=== PATIENT | female | born 1995 | race Caucasian/White ===

== ENCOUNTER 2017-03-05 08:00 | Outpatient (CLI) | payer OTHER ==
[2017-03-05 13:40] LABS: BASOPHILS % (AUTO) 0.6 %; EOSINOPHILS # (AUTO) 0.2 10^3/uL (0.0-0.7); HCT - HEMATOCRIT 41.1 % (37.0-47.0); HGB - HEMOGLOBIN 13.2 g/dL (12.0-16.0); LYMPHOCYTES # (AUTO) 2.2 10^3/uL (1.5-3.5); LYMPHOCYTES % (AUTO) 29.7 %; MEAN CORPUSCULAR HEMOGLOBIN 27.4 pg (27.0-31.0); MEAN CORPUSCULAR HGB CONC 32.1 g/dL (32.0-36.0); MEAN CORPUSCULAR VOLUME 85.5 fL (81.0-99.0); MEAN PLATELET VOLUME 8.6 fL (7.9-10.8); MONOCYTES # (AUTO) 0.7 10^3/uL (0.0-1.0); MONOCYTES % (AUTO) 8.7 %; NEUTROPHILS # (AUTO) 4.4 10^3/uL (1.5-6.6); NUCLEATED RED BLOOD CELLS AUTO 0.1 /100WBC; UNCORRECTED WHITE BLOOD COUNT 7.6 x10^3/uL; WHITE BLOOD COUNT 7.6 x10^3/uL (4.8-10.8)
[2017-03-05 13:43] LABS: ALBUMIN/GLOBULIN RATIO 1.1 (1.0-2.2); BILIRUBIN,TOTAL 0.3 mg/dL (0.2-1.0); CALCIUM 9.1 mg/dL (8.5-10.3); CREATININE 0.9 mg/dL (0.4-1.0); POTASSIUM 3.8 mmol/L (3.5-5.0); TOTAL PROTEIN 8.4 g/dL (6.7-8.2)
== END 2017-03-05 08:01 | disposition home or self-care (01) ==
LOC: LAB.WCP 08:00
PROVIDERS: ATTEND Physician Assistant Medical
DX: B97.89 Other viral agents as the cause of diseases classified elsewhere (principal); D50.9 Iron deficiency anemia, unspecified
CPT/HCPCS: 36415; 80053; 82728; 85025

== ENCOUNTER 2018-11-28 19:45 | Emergency (ER) | payer OTHER ==
--- NOTE | 2018-11-28 20:06 | ED Physician Documentation ---
History of Present Illness - Stated complaint Stated Complaint: R HAND/L ANKLE PX - Chief complaint Chief Complaint: Trauma Ext - History obtained from History obtained from: Patient - History of Present Illness Timing: Last night (Last night at 2 AM she tripped and fell off the curb and injured her right foot and right hand. She remembers smacking the back of her hand on the ground and has pain over the fifth metacarpal. Pain over both sides of the malleoli of the right ankle but is able to walk and bear weight. No other injuries. 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 : None HEENT: None Psych: Anxiety Musculoskeletal: None Derm: None - Past Surgical History Past Surgical History: Yes - Present Medications Home Medications: Ambulatory Orders Medication Instructions Recorded Confirmed Omeprazole 1 tab ORAL DAILY 11/28/18 11/28/18 Sertraline HCl 1 tab ORAL DAILY 11/28/18 11/28/18 - Allergies Allergies/Adverse Reactions: Allergies Allergy/AdvReac Type Severity Reaction Status Date / Time No Known Drug Allergies Allergy Verified 11/28/18 19:51 - Social History Does the pt smoke?: No Smoking Status: Never smoker Does the pt drink ETOH?: Yes ETOH Use: Beer, Liquor Does the pt have substance abuse?: No - Immunizations Immunizations are current?: Yes - POLST Patient has POLST: No PD ED PE NORMAL - Vitals Vital signs reviewed: Yes - General General: Alert and oriented X 3 - HEENT HEENT: Atraumatic, PERRL - Neck Neck: Supple, no meningeal sign, No bony TTP - Extremities Extremities: Other (Tender over the medial malleolus of the right ankle, but swollen over the lateral malleolus. Noted to remedy. No foot tenderness, no proximal fibular tenderness. She is also tender over the right fifth metacarpal but no deformity and good range of motion.) - Neuro Neuro: Alert and oriented X 3, Normal speech Results - Vitals Vitals: Vital Signs - 24 hr 11/28/18 19:49 Temperature 36.4 C L Heart Rate 99 Respiratory 15 Rate Blood Pressure 108/91 H O2 Saturation 99 Oxygen O2 Source Room air - Rads (name of study) R hand and ankle XRs Radiology: EMP read contemporaneously (NAD) Procedures - Splint (location) R hand Splint applied by: Physician Type of splint: Fiberglass, Short arm, Ulnar gutter Other: Patient tolerated well, Neurovascular intact Departure - Departure Disposition: 01 Home, Self Care Clinical Impression: Contusion of right hand Qualifiers: Encounter type: initial encounter Qualified Code(s): S60.221A - Contusion of r ight hand, initial encounter Right ankle sprain Qualifiers: Encounter type: initial encounter Involved ligament of ankle: anterior talofibular ligament Qualified Code(s): S93.491A - Sprain of other ligament of right ankle, initial encounter Condition: Good Record reviewed to determine appropriate education?: Yes Instructions: ED Sprain Ankle W X Ray Comments: Recheck with your doctor in 1 week if not better. Return for new or worsening symptoms. You may walk and bear weight as tolerated. Forms: Activity restrictions
--- NOTE | 2018-11-28 20:52 | XRAY Report ---
Reason: hand/ankle inj Procedure Date: 11/28/2018 Accession Number: [id number] / [id number] Procedure: XR - Hand 3 View RT CPT Code: FULL RESULT: EXAM: RIGHT HAND RADIOGRAPHY. EXAM DATE: 11/28/2018 08:21 PM. CLINICAL HISTORY: Hand/ankle injury. COMPARISON: None. TECHNIQUE: 3 views. FINDINGS: Bones: Normal. No fractures or bone lesions. Joints: Normal. No subluxations. Soft Tissues: Normal. No soft tissue swelling. IMPRESSION: Normal hand radiography. RADIA
--- NOTE | 2018-11-28 20:53 | XRAY Report ---
Reason: hand/ankle inj Procedure Date: 11/28/2018 Accession Number: [id number] / [id number] Procedure: XR - Ankle 3 View RT CPT Code: FULL RESULT: EXAM: RIGHT ANKLE RADIOGRAPHY EXAM DATE: 11/28/2018 08:21 PM. CLINICAL HISTORY: Fall with right ankle injury. COMPARISON: ANKLE 3 VIEW RT 03/25/2015 11:13 PM. TECHNIQUE: 3 views. FINDINGS: Bones: Normal. No fractures or bone lesions. Joints: Normal. No effusion. No subluxations. The ankle mortise is normally aligned. Soft Tissues: Moderate swelling, greater on the lateral aspect. IMPRESSION: Moderate swelling, but no evidence of fracture. RADIA
[2018-11-28 21:06] VITALS: BP 115/73
== END 2018-11-28 21:12 | disposition home or self-care (01) ==
LOC: ED 19:45
DX: S60.221A Contusion of right hand, initial encounter (principal); S93.499A Sprain of other ligament of unspecified ankle, initial encounter; W01.0XXA Fall on same level from slipping, tripping and stumbling without subsequent striking against object, initial encounter; Y93.01 Activity, walking, marching and hiking
CPT/HCPCS: 29125; 99282; 99283

== ENCOUNTER 2022-08-23 23:26 | Emergency (ER) | payer OTHER ==
[2022-08-24] MEDS ORDERED: DOXYCYCLINE 100 MG TABLET PO ONE (01:53)
[2022-08-24 07:57] VITALS: BP 131/81
--- NOTE | 2022-08-24 09:53 | ED Physician Documentation ---
ED Addendum - Addendum Addendum: 08/24/22 09:52 [facility]. SEE PAPER CHART
== END 2022-08-24 01:53 | disposition home or self-care (01) ==
LOC: ED 23:26
DX: N61.1 Abscess of the breast and nipple (principal)
CPT/HCPCS: 99282; 99283; A9270

== ENCOUNTER 2023-07-22 08:00 | Outpatient (CLI) | payer MEDICAID, OTHER | END 2023-07-22 23:59 | disposition home or self-care (01) | LOC: LAB 08:00 | PROVIDERS: ATTEND Family Medicine | DX: L72.3 Sebaceous cyst (principal) | CPT/HCPCS: 87070; 87077; 87181; 87205 ==

== ENCOUNTER 2023-10-02 12:01 | Emergency (ER) | payer MEDICAID, OTHER ==
[2023-10-02 12:12] VITALS: O2SAT 100
[2023-10-02 12:26] LABS: BASOPHILS % (AUTO) 0.5 %; EOSINOPHILS # (AUTO) 0.1 10^3/uL (0.0-0.7); EOSINOPHILS % (AUTO) 1.7 %; HCT - HEMATOCRIT 36.7 % (37.0-47.0); HGB - HEMOGLOBIN 10.8 g/dL (12.0-16.0); LYMPHOCYTES # (AUTO) 2.4 10^3/uL (1.5-3.5); LYMPHOCYTES % (AUTO) 29.6 %; MEAN CORPUSCULAR HEMOGLOBIN 24.9 pg (27.0-31.0); MEAN CORPUSCULAR HGB CONC 29.4 g/dL (32.0-36.0); MEAN CORPUSCULAR VOLUME 84.8 fL (81.0-99.0); MEAN PLATELET VOLUME 9.5 fL (7.9-10.8); MONOCYTES # (AUTO) 0.6 10^3/uL (0.0-1.0); PLT - PLATELET COUNT 406 10^3/uL (130-450); RED BLOOD COUNT 4.33 10^6/uL (4.20-5.40); RED CELL DISTRIBUTION WIDTH 15.7 % (12.0-15.0); WHITE BLOOD COUNT 8.2 x10^3/uL (4.8-10.8)
[2023-10-02 12:41] LABS: BILIRUBIN,URINE NEGATIVE (NEGATIVE); GLUCOSE, URINE (UA) NEGATIVE (NEGATIVE); KETONES,URINE (UA) NEGATIVE (NEGATIVE); LEUKOCYTE ESTERASE, URINE NEGATIVE (NEGATIVE); NITRITE,URINE NEGATIVE (NEGATIVE); OCCULT BLOOD,URINE SMALL (NEGATIVE); PROTEIN,URINE NEGATIVE (NEGATIVE); UROBILINOGEN,URINE 0.2 (NORMAL) E.U./dL (NORMAL)
[2023-10-02 12:41] LABS: ALBUMIN 4.2 g/dL (3.2-5.5); ALBUMIN/GLOBULIN RATIO 1.3 (1.0-2.2); BILIRUBIN,TOTAL 0.3 mg/dL (0.2-1.0); CALCIUM 9.2 mg/dL (8.5-10.3); POTASSIUM 3.8 mmol/L (3.5-4.5); TOTAL PROTEIN 7.5 g/dL (6.4-8.9)
[2023-10-02 12:42] LABS: CLARITY,URINE CLEAR (CLEAR); HCG UR QUAL NEGATIVE
[2023-10-02 12:52] LABS: BACTERIA,URINE Few /HPF (None Seen); RBC,URINE 0-5 /HPF (0-5); SQUAMOUS EPITHELIAL CELL,UR FEW Squamous (<= Few); WBC,URINE 0-3 /HPF (0-5)
--- NOTE | 2023-10-02 14:58 | ED Physician Documentation ---
PD HPI ABD PAIN - Stated complaint Stated Complaint: LLQ PX - Chief complaint Chief Complaint: Abd Pain - History obtained from History obtained from: Patient - History of Present Illness Timing - onset: How many hours ago (few), Today Timing - duration: Hours Timing - details: Abrupt onset, Still present (has increased since onset.) Quality: Cramping, Aching, Pain Location: LLQ Radiation: Left flank Associated symptoms: Nausea. No: Fever, Vomiting, Diarrhea, Constipation, Dysuria Review of Systems Constitutional: denies: Fever, Chills Nose: denies: Rhinorrhea / runny nose, Congestion Throat: denies: Sore throat Respiratory: denies: Cough GI: reports: Abdominal Pain, Nausea. 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 : None HEENT: None Psych: Anxiety Musculoskeletal: None Derm: None - Past Surgical History Past Surgical History: Yes - Present Medications Home Medications: Ambulatory Orders Medication Instructions Recorded Confirmed Sertraline HCl 1 tab ORAL DAILY 11/28/18 08/23/22 acetaZOLAMIDE ER [Diamox ER] 500 mg PO DAILY 06/18/22 08/23/22 buPROPion [Wellbutrin Xl] 150 mg PO DAILY 06/18/22 08/23/22 Meloxicam [Mobic] 7.5 mg PO BID 10 Days #20 tablet 10/02/23 Ondansetron Odt [Zofran] 4 mg TL Q6H PRN #10 tablet 10/02/23 Oxycodone HCl/Acetaminophen 1 each PO Q4H PRN #25 tablet 10/02/23 [Percocet 5-325 mg Tablet] Tamsulosin [Flomax] 0.4 mg PO DAILY #5 cap 10/02/23 - Allergies Allergies/Adverse Reactions: Allergies Allergy/AdvReac Type Severity Reaction Status Date / Time No Known Drug Allergies Allergy Verified 10/02/23 12:06 - Social History Does the pt smoke?: No Smoking Status: Never smoker Does the pt drink ETOH?: Yes Does the pt have substance abuse?: No - Immunizations Immunizations are current?: Yes - POLST Patient has POLST: No PD ED PE NORMAL - Vitals Vital signs reviewed: Yes - General General: Alert and oriented X 3, Well developed/nourished, Other (appears in considerable pain left abd to back. ) - Cardiac Cardiac: RRR, No murmur - Respiratory Respiratory: Clear bilaterally - Abdomen Abdomen: Normal bowel sounds, Soft, Non distended, No organomegaly, Other (tender LLQ but not nearly as much as just pain itself. Some left CVA tenderness. ) - Back Back: No spinal TTP - Derm Derm: Normal color, Warm and dry, No rash Results - Vitals Vitals: Vital Signs - 24 hr 10/02/23 10/02/23 10/02/23 12:06 15:08 17:35 Temperature 36.8 C Heart Rate 84 86 93 Respiratory 16 16 16 Rate Blood Pressure 140/90 H 116/82 H 114/73 O2 Saturation 100 100 100 10/02/23 17:45 Temperature 36.8 C Heart Rate 93 Respiratory 16 Rate Blood Pressure 114/73 O2 Saturation 100 Oxygen O2 Source Room air - Labs Labs: Laboratory Tests 10/02/23 10/02/23 10/02/23 12:18 12:22 12:22 WBC 8.2 RBC 4.33 Hgb 10.8 L Hct 36.7 L MCV 84.8 MCH 24.9 L MCHC 29.4 L RDW 15.7 H Plt Count 406 MPV 9.5 Neut # (Auto) 5.0 Lymph # (Auto) 2.4 [place] # (Auto) 0.6 Eos # (Auto) 0.1 Baso # (Auto) 0.0 Absolute Nucleated RBC 0.00 Nucleated RBC % 0.0 Sodium 138 Potassium 3.8 Chloride 108 Carbon Dioxide 25 Anion Gap 5.0 L BUN 17 Creatinine 1.0 Estimated GFR (MDRD) 67 L Glucose 67 L Calcium 9.2 Total Bilirubin 0.3 AST 14 ALT 8 L Alkaline Phosphatase 72 Total Protein 7.5 Albumin 4.2 Globulin 3.3 Albumin/Globulin Ratio 1.3 Lipase 32 Urine Color YELLOW Urine Clarity CLEAR Urine pH 6.0 Ur Specific [place] >=1.030 H Urine Protein NEGATIVE Urine Glucose (UA) NEGATIVE Urine Ketones NEGATIVE Urine Occult Blood SMALL H Urine Nitrite NEGATIVE Urine Bilirubin NEGATIVE Urine Urobilinogen 0.2 (NORMAL) Ur Leukocyte Esterase NEGATIVE Urine RBC 0-5 Urine WBC 0-3 Ur Squamous Epith Cells FEW Squamous Urine Bacteria Few Ur Microscopic Review INDICATED Urine Culture Comments NOT INDICATED Urine HCG, Qual NEGATIVE PD Medical Decision Making - ED course Complexity details: reviewed results (no UTI, renal function and WBC are good. CT showing 8 mm stone proximal third of ureter. [place]. No other acute findings. ), re-evaluated patient (pain much improved with IV meds of toradol, zofran , dilaudid. Was still mild/moderate, so repeat dose dilaudid. She felt comfortable discharging. Referred to Urology. Return if need.), considered differential (left abd pain with some tenderness. Consider UTI, renal stone, diverticulitis, ovarian cyst, other process. ), d/w patient Departure - Departure Disposition: 01 Home, Self Care Clinical Impression: Left sided abdominal pain, Ureterolithiasis Condition: Stable Record reviewed to determine appropriate education?: Yes Instructions: ED Stone Renal W Colic Follow-Up: Chani Carver MD [Primary Care Provider] - [place] Ch MD [Provider Admit Priv/Credential] - Prescriptions: Tamsulosin [Flomax] 0.4 mg PO DAILY #5 cap Meloxicam [Mobic] 7.5 mg PO BID 10 Days #20 tablet Oxycodone HCl/Acetaminophen [Percocet 5-325 mg Tablet] 1 each PO Q4H PRN #25 tablet PRN Reason: pain Ondansetron Odt [Zofran] 4 mg TL Q6H PRN #10 tablet PRN Reason: Nausea / Vomiting Comments: You do have an 8 mm stone in the upper third of the left ureter. It is made its way a small amount. At this point would see if the stone is able to keep passing on its own helped with medication. I prescribed an anti-inflammatory as well as a medication called tamsulosin to help reduce ureteral spasms. Take them as directed. Additionally ondansetron if needed for nausea. To that use regular Tylenol 500 to 650 mg 4 times a day. Add or substitute oxycodone/acetaminophen every 4-6 hours if needed for worse pain. Return if pain is not well-modulated with the medications. If it seems you have not passed the stone (i.e. you are still requiring medications for comfort), after a few days then you could return to the ER or even better would be to call the urology office and tell them the circumstances and they typically would get you in a fairly prompt follow-up visit. If the stone does not pass readily, interventions could be potentially passed placing a stent in the ureter to open the way or try to remove the stone with laser as etc. I sent your prescriptions to the [facility] pharmacy in [place]. I am prescribing a short course of narcotic pain medication for you. These are potentially dangerous and addictive medications that should be used carefully. These medications may constipate you. Take an wnfl-lcb-cwsmrva stool softener such as docusate twice daily with plenty of water while taking these medications. If you go 24 hours without a bowel movement, take [id number]-[id number] MiraLAX, per package instructions. Do not drink or drive while taking these medications. If you received narcotic or sedating medications while in the emergency department do not drive for 24 hours. Store this medication in a safe, secure place and out of reach of children. It is a violation of federal law to give or sell this medication to another person or to use in a manner other than prescribed. The ED will not refill narcotic prescriptions, including prescriptions lost or stolen. You can dispose of unwanted medications at the [facility]'s office or at several pharmacies such as [facility]. Forms: PCP List Discharge Date/Time: 10/02/23 17:55
[2023-10-02] MEDS: SODIUM CHLORIDE 0.9% 1,000 ML IV STA (15:50)
[2023-10-02] MEDS: ONDANSETRON 4 MG/2 ML VIAL IVP STA (15:51)
[2023-10-02] MEDS: HYDROmorphone 1 MG/ML CARPUJECT IVP STA (15:52)
[2023-10-02] MEDS: KETOROLAC 15 MG/ML VIAL IVP STA (15:52)
[2023-10-02] MEDS ORDERED: iohexoL-300 100 ML VIAL ONE (16:15)
--- NOTE | 2023-10-02 17:02 | CT Report ---
PROCEDURE: Abdomen/Pelvis W INDICATIONS: left abd/flank pain onset this morning CONTRAST: 100ml omni 300 TECHNIQUE: After the administration of intravenous contrast, a CT scan of the abdomen and pelvis was performed. Images were recorded and evaluated at appropriate window settings. Reformats: coronal and sagittal. F or radiation dose reduction, the following was used: automated exposure control, adjustment of mA and /or kV according to patient size. COMPARISON: None. FINDINGS: Image quality: Diagnostic. Lower chest: Unremarkable. Liver: No solid mass. Gallbladder and biliary tree: No radiopaque stones or wall thickening. No biliary dilation. Spleen: No splenomegaly. Pancreas: No pancreatic ductal dilation. Adrenals: No adrenal nodule. Kidneys and ureters: There is a 8 mm proximal left ureteral stone at the level of the inferior aspect of L3 which results in a delayed left nephrogram and moderate left hydronephrosis and left kidney ed carmella. The right kidney and ureter are unremarkable. Stomach, bowel and peritoneum: No bowel distension. No pathologic free fluid. Lymph nodes: No central or retroperitoneal adenopathy. Vessels: No infrarenal aortic aneurysm. PELVIS Reproductive organs: Bilateral cystic adnexa. Uterus is normal in size.. Bladder: No abnormal wall thickening, accounting for underdistention. Pelvic lymph nodes: No pelvic adenopathy by size criteria. Bones: No aggressive osseous abnormality. Other: No significant ventral or inguinal hernia. IMPRESSION: 1. 8 mm proximal left ureteral stone obstructs the left ureter, resulting in a delayed left nephrogra m, moderate left hydronephrosis, and an edematous appearance of the left kidney. Reviewed by: Deejay Phelps MD on 10/02/2023 5:01 PM PDT Approved by: Deejay Phelps MD on 10/02/2023 5:01 PM PDT Station ID: [id number]
[2023-10-02] MEDS: HYDROmorphone 0.5 MG/0.5 ML SYRINGE IVP STA (17:31)
[2023-10-02] MEDS: TAMSULOSIN 0.4 MG CAPSULE PO STA (17:31)
[2023-10-02 17:38] VITALS: BP 114/73
[2023-10-02] MEDS: iohexoL-300 100 ML VIAL IVP ONE (17:40)
== END 2023-10-02 17:55 | disposition home or self-care (01) ==
LOC: ED 12:01
DX: N20.1 Calculus of ureter (principal)
CPT/HCPCS: 36415; 74177; 80053; 81001; 81025; 83690; 85025; 96374; 96375; 96376; 99284; A9270; J1170; Q9967; 81003; 87086

== ENCOUNTER 2023-12-17 05:22 | Emergency (ER) | payer MEDICAID ==
[2023-12-17 05:42] LABS: BASOPHILS # (AUTO) 0.1 10^3/uL (0.0-0.1); BASOPHILS % (AUTO) 0.5 %; EOSINOPHILS # (AUTO) 0.1 10^3/uL (0.0-0.7); HCT - HEMATOCRIT 39.5 % (37.0-47.0); HGB - HEMOGLOBIN 11.4 g/dL (12.0-16.0); LYMPHOCYTES # (AUTO) 2.1 10^3/uL (1.5-3.5); LYMPHOCYTES % (AUTO) 17.7 %; MEAN CORPUSCULAR HEMOGLOBIN 24.3 pg (27.0-31.0); MEAN CORPUSCULAR HGB CONC 28.9 g/dL (32.0-36.0); MONOCYTES # (AUTO) 0.8 10^3/uL (0.0-1.0); NEUTROPHILS # (AUTO) 8.8 10^3/uL (1.5-6.6); NEUTROPHILS % (AUTO) 73.4 %; PLT - PLATELET COUNT 345 10^3/uL (130-450); RED CELL DISTRIBUTION WIDTH 15.9 % (12.0-15.0)
[2023-12-17] MEDS: SODIUM CHLORIDE 0.9% 1,000 ML IV STA (05:44)
[2023-12-17] MEDS: ONDANSETRON 4 MG/2 ML VIAL IVP STA (05:44)
--- NOTE | 2023-12-17 05:48 | ED Physician Documentation ---
History of Present Illness - Stated complaint Stated Complaint: VOMITING/ABD PX - Chief complaint Chief Complaint: General - History obtained from History obtained from: Patient - Additonal information Additional information: The patient comes to the emergency department with chief complaint of abdominal pain, nausea, vomiting, and chills. She states the pain started yesterday afternoon and was somewhat generalized across her mid to lower abdomen, but then seem to localize more to the left flank and back. The patient has a history of kidney stones and states this feels similar. She denies any dysuria or hematuria. She states that she became more nauseated as the pain got worse and ended up vomiting this morning. The patient has not urinated since yesterday. She denies any changes in her bowel movements. No vaginal symptoms. No fevers. No other complaints at this time. 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 : None HEENT: None Psych: Anxiety Musculoskeletal: None Derm: None - Past Surgical History Past Surgical History: Yes - Present Medications Home Medications: Ambulatory Orders Medication Instructions Recorded Confirmed Sertraline HCl 1 tab ORAL DAILY 11/28/18 08/23/22 acetaZOLAMIDE ER [Diamox ER] 500 mg PO DAILY 06/18/22 08/23/22 buPROPion [Wellbutrin Xl] 150 mg PO DAILY 06/18/22 08/23/22 Meloxicam [Mobic] 7.5 mg PO BID 10 Days #20 tablet 10/02/23 Ondansetron Odt [Zofran] 4 mg TL Q6H PRN #10 tablet 10/02/23 Oxycodone HCl/Acetaminophen 1 each PO Q4H PRN #25 tablet 10/02/23 [Percocet 5-325 mg Tablet] Tamsulosin [Flomax] 0.4 mg PO DAILY #5 cap 10/02/23 HYDROcod/ACETAM 5/325 [[place] 5/325] 1 - 2 tablet PO Q6H PRN #14 tablet 12/17/23 Ondansetron Odt [Zofran] 4 mg TL Q6H PRN #14 tablet 12/17/23 - Allergies Allergies/Adverse Reactions: Allergies Allergy/AdvReac Type Severity Reaction Status Date / Time No Known Drug Allergies Allergy Verified 12/17/23 05:43 - Social History Does the pt smoke?: No Smoking Status: Never smoker Does the pt drink ETOH?: Yes Does the pt have substance abuse?: No - Immunizations Immunizations are current?: Yes - POLST Patient has POLST: No PD ED PE NORMAL - Vitals Vital signs reviewed: Yes - General General: Alert and oriented X 3, No acute distress, Well developed/nourished - HEENT HEENT: Atraumatic, PERRL, EOMI, Moist mucous membranes - Neck Neck: Supple, no meningeal sign - Cardiac Cardiac: RRR, No murmur - Respiratory Respiratory: No respiratory distress, Clear bilaterally - Abdomen Abdomen: Soft, Non distended, Other (Mild left lower quadrant and flank tenderness, no rebound or guarding.) - Back Back: Other (Mild left CVA tenderness.) - Derm Derm: Normal color, Warm and dry, No rash - Extremities Extremities: No deformity, No edema - Neuro Neuro: Alert and oriented X 3 - Psych Psych: Normal mood, Normal affect Results - Vitals Vitals: Vital Signs - 24 hr 12/17/23 12/17/23 12/17/23 05:29 07:34 08:35 Temperature 36.5 C Heart Rate 107 H 86 84 Respiratory 16 14 16 Rate Blood Pressure 128/92 H 117/80 124/64 O2 Saturation 99 99 97 Oxygen O2 Source Room air - Labs Labs: Laboratory Tests 12/17/23 12/17/23 12/17/23 05:36 05:36 05:36 WBC 12.0 H RBC 4.70 Hgb 11.4 L Hct 39.5 MCV 84.0 MCH 24.3 L MCHC 28.9 L RDW 15.9 H Plt Count 345 MPV 10.0 Neut # (Auto) 8.8 H Lymph # (Auto) 2.1 [place] # (Auto) 0.8 Eos # (Auto) 0.1 Baso # (Auto) 0.1 Absolute Nucleated RBC 0.00 Nucleated RBC % 0.0 Sodium 137 Potassium 3.4 L Chloride 106 Carbon Dioxide 24 Anion Gap 7.0 BUN 17 Creatinine 1.5 H Estimated GFR (MDRD) 42 L Glucose 109 H Calcium 9.1 Total Bilirubin 0.4 AST 13 ALT 8 L Alkaline Phosphatase 75 Total Protein 7.8 Albumin 4.3 Globulin 3.5 Albumin/Globulin Ratio 1.2 Lipase 13 Serum HCG, Qual NEGATIVE Urine Color Urine Clarity Urine pH Ur Specific [place] Urine Protein Urine Glucose (UA) Urine Ketones Urine Occult Blood Urine Nitrite Urine Bilirubin Urine Urobilinogen Ur Leukocyte Esterase Urine RBC Urine WBC Ur Squamous Epith Cells Urine Bacteria Ur Microscopic Review Urine Culture Comments 12/17/23 05:52 WBC RBC Hgb Hct MCV MCH MCHC RDW Plt Count MPV Neut # (Auto) Lymph # (Auto) [place] # (Auto) Eos # (Auto) Baso # (Auto) Absolute Nucleated RBC Nucleated RBC % Sodium Potassium Chloride Carbon Dioxide Anion Gap BUN Creatinine Estimated GFR (MDRD) Glucose Calcium Total Bilirubin AST ALT Alkaline Phosphatase Total Protein Albumin Globulin Albumin/Globulin Ratio Lipase Serum HCG, Qual Urine Color YELLOW Urine Clarity CLEAR Urine pH 6.0 Ur Specific [place] 1.025 Urine Protein NEGATIVE Urine Glucose (UA) NEGATIVE Urine Ketones NEGATIVE Urine Occult Blood SMALL H Urine Nitrite NEGATIVE Urine Bilirubin NEGATIVE Urine Urobilinogen 0.2 (NORMAL) Ur Leukocyte Esterase SMALL H Urine RBC 0-5 Urine WBC 4-5 Ur Squamous Epith Cells FEW Squamous Urine Bacteria Few Ur Microscopic Review INDICATED Urine Culture Comments INDICATED - Rads (name of study) CT abdomen pelvis no contrast Relevant Findings:: Final report received, See rad report (6.5 mm stone in the left mid ureter, some hydronephrosis.) PD Medical Decision Making - ED course Complexity details: reviewed results, re-evaluated patient, considered differential, d/w patient, d/w family ED course: The patient was worked up initially with labs and urinalysis, and treated symptomatically with IV fluids, Zofran, Toradol, and Dilaudid. The patient was feeling quite a bit better after symptomatic treatment in the ED. Her workup revealed no UTI and a mild leukocytosis. The patient's CT showed a moderately sized stone at 6.5 mm in the mid ureter. I discussed with the patient that the stone may pass but it may take up to few weeks. She does not have a urinary tract infection right now, but we have discussed the need for immediate return, should she develop any fevers, shaking chills or dysuria. I have prescribed occasion for pain and nausea the patient is deemed stable for discharge home. She already has a referral to urology and I have given her our urology clinic number so that she can call today to try to get set up for follow-up. Departure - Departure Disposition: Home, Self Care Clinical Impression: Kidney stone on left side Condition: Stable Instructions: ED Stone Renal W Colic Follow-Up: [place] Ch MD [Provider Admit Priv/Credential] - Prescriptions: HYDROcod/ACETAM 5/325 [[place] 5/325] 1 - 2 tablet PO Q6H PRN #14 tablet PRN Reason: Pain Ondansetron Odt [Zofran] 4 mg TL Q6H PRN #14 tablet PRN Reason: Nausea / Vomiting Comments: Your CT scan shows a 6.5 mm stone in the middle of your left ureter, the tube between your kidney and bladder. This is undoubtedly the cause of your pain. There is no evidence of infection in your urine for now, but if you develop any pain or burning when you urinate or any fevers or chills, you need to be rechecked. You may take the pain medication prescribed as needed. The prescription for this has been electronically transmitted to the [facility] pharmacy in [place], along with a prescription for nausea medicine. Please follow-up with urology. Please call today to make the next available appointment. Forms: PCP List Discharge Date/Time: 12/17/23 08:36
[2023-12-17] MEDS: HYDROmorphone 1 MG/ML CARPUJECT IVP STA (05:50)
[2023-12-17] MEDS: KETOROLAC 30 MG/ML VIAL IVP STA (05:51)
[2023-12-17 05:55] LABS: ALBUMIN 4.3 g/dL (3.2-5.5); ALBUMIN/GLOBULIN RATIO 1.2 (1.0-2.2); BILIRUBIN,TOTAL 0.4 mg/dL (0.2-1.0); CALCIUM 9.1 mg/dL (8.5-10.3); CREATININE 1.5 mg/dL (0.6-1.3); POTASSIUM 3.4 mmol/L (3.5-4.5); TOTAL PROTEIN 7.8 g/dL (6.4-8.9)
[2023-12-17 06:15] LABS: BILIRUBIN,URINE NEGATIVE (NEGATIVE); GLUCOSE, URINE (UA) NEGATIVE (NEGATIVE); KETONES,URINE (UA) NEGATIVE (NEGATIVE); LEUKOCYTE ESTERASE, URINE SMALL (NEGATIVE); NITRITE,URINE NEGATIVE (NEGATIVE); OCCULT BLOOD,URINE SMALL (NEGATIVE); PROTEIN,URINE NEGATIVE (NEGATIVE); UROBILINOGEN,URINE 0.2 (NORMAL) E.U./dL (NORMAL)
[2023-12-17 06:16] LABS: HCG,QUALITATIVE BLOOD NEGATIVE
[2023-12-17 06:18] LABS: CLARITY,URINE CLEAR (CLEAR)
[2023-12-17 06:23] LABS: BACTERIA,URINE Few /HPF (None Seen); RBC,URINE 0-5 /HPF (0-5); SQUAMOUS EPITHELIAL CELL,UR FEW Squamous (<= Few)
[2023-12-17 08:41] VITALS: BP 124/64; O2SAT 97
--- NOTE | 2023-12-17 10:55 | CT Report ---
PROCEDURE: Abdomen/Pelvis WO INDICATIONS: L flank pain, hematuria, h/o kidney stones TECHNIQUE: A CT scan of the abdomen and pelvis was performed without the use of intravenous contrast. Images we re recorded and evaluated at appropriate window settings. Reformats: coronal and sagittal. For radiat ion dose reduction, the following was used: automated exposure control, adjustment of mA and/or kV ac cording to patient size. COMPARISON: CT abdomen pelvis 10/02/2023 FINDINGS: Image quality: Diagnostic. Lower chest: Unremarkable. Liver: No contour-deforming mass. Gallbladder: Unremarkable. Biliary tree: No intrahepatic or extrahepatic dilation, accounting for age. Spleen: No splenomegaly. Pancreas: No pancreatic ductal dilation. Adrenals: No adrenal nodule. Kidneys and ureters: Moderate left hydronephrosis and hydroureter. 7 mm proximal ureteral calculus Ho unsfield units 1097. Stomach, bowel and peritoneum: No gastric or small bowel dilation. No abnormal wall thickening. No pa thologic free fluid. Lymph nodes: No central or retroperitoneal adenopathy. Vessels: No infrarenal aortic aneurysm. Reproductive organs: Unremarkable. Bladder: Bladder wall thickness is normal, accounting for underdistention. No calcified bladder stone s. Pelvic lymph nodes: No adenopathy by size criteria. Bones: No aggressive osseous abnormality. Other: No significant ventral or inguinal hernia. IMPRESSION: Similar proximal left ureteral calculus with moderate hydronephrosis and hydroureter. Reviewed by: Jasmyn Jin MD on 12/17/2023 10:54 AM PDT Approved by: Jasmyn Jin MD on 12/17/2023 10:54 AM PDT Station ID: [id number]
== END 2023-12-17 08:36 | disposition home or self-care (01) ==
LOC: ED 05:22
DX: N13.2 Hydronephrosis with renal and ureteral calculous obstruction (principal); D72.829 Elevated white blood cell count, unspecified; Z79.899 Other long term (current) drug therapy
CPT/HCPCS: 36415; 80053; 81001; 81003; 83690; 84703; 85025; 87086; 96374; 96375; 99283

== ENCOUNTER 2024-01-04 09:42 | Day surgery (SDC) | payer MEDICAID ==
[2024-01-04] MEDS ORDERED: ceFAZolin 2 GM VIAL ONE (09:43)
[2024-01-04] MEDS: LACTATED RINGERS 1,000 ML IV ONE ×2 (09:54→12:23)
[2024-01-04 10:25] LABS: HCG UR QUAL NEGATIVE
[2024-01-04] MEDS ORDERED: LIDOCAINE 2% URO-JET 5 ML SYRINGE UR ONE (11:29)
[2024-01-04] MEDS ORDERED: PROPOFOL 200 MG/20 ML VIAL IVP ONE (11:32)
[2024-01-04] MEDS ORDERED: MIDAZOLAM 2 MG/2 ML VIAL ONE (11:32)
[2024-01-04] MEDS ORDERED: fentaNYL 100 MCG/2 ML VIAL ONE (11:32)
--- NOTE | 2024-01-04 11:32 | ANESTHESIA ---
Pre-Anesthesia VS, & Labs - Diagnosis kidney stone - Procedure left laser lithotripsy, cysto, ureteroscopy, stent Vital Signs: Temp Pulse Resp BP Pulse Ox O2 Flow Rate 36.4 C L 97 16 117/78 98 01/04/24 10:01 01/04/24 10:01 01/04/24 10:01 01/04/24 10:01 01/04/24 10:01 Height: 5 ft 2 in Weight (kg): 98.6 kg Body Mass Index: 39.7 BMI Classification: Obese - NPO >8 hours - Is Patient ?: No Home Medications and Allergies Sertraline HCl 200 mg ORAL DAILY 11/28/18 acetaZOLAMIDE ER [Diamox ER] 500 mg PO DAILY 06/18/22 buPROPion [Wellbutrin Xl] 150 mg PO DAILY 06/18/22 Allergies/Adverse Reactions: Allergies Allergy/AdvReac Type Severity Reaction Status Date / Time No Known Drug Allergies Allergy Verified 12/17/23 05:43 Anes History & Medical History - Anesthetic History Anesthesia Complications: reports: No previous complications - Medical History Cardiovascular: reports: None Pulmonary: reports: None Gastrointestinal: reports: GERD Urinary: reports: Kidney stones Neuro: reports: None Musculoskeletal: reports: None Endocrine/Autoimmune: reports: None Blood Disorders: reports: None Skin: reports: Eczema Smoking Status: Never smoker Psychosocial: reports: Alcohol (occasionally) Exam General: Alert, Oriented x3 Dental: WNL Mouth Opening: Greater than 4 Fingerbreadths Neck Mobility: Normal Mallampati classification: II Thyromental Distance: greater than 6 cm Respiratory: Lungs clear Cardiovascular: Regular rate Plan Anesthesia Type: General Consent for Procedure(s) Verified and Reviewed: Yes Code Status: Attempt Resuscitation ASA classification: 2-Mild systemic disease Is this case an emergency?: No
[2024-01-04] MEDS ORDERED: DEXAMETHASONE 4 MG/ML VIAL ONE (11:33)
[2024-01-04] MEDS ORDERED: fentaNYL 100 MCG/2 ML VIAL IVP PRN (11:33)
[2024-01-04] MEDS ORDERED: METOCLOPRAMIDE 10 MG/2 ML VIAL IVP PRN (11:33)
[2024-01-04] MEDS ORDERED: ATROPINE ABBOJECT 1 MG/10 ML SYRINGE IVP PRN (11:33)
[2024-01-04] MEDS ORDERED: NALOXONE 0.4 MG/ML VIAL IVP PRN (11:33)
[2024-01-04] MEDS ORDERED: KETOROLAC 30 MG/ML VIAL ONE (11:33)
[2024-01-04] MEDS ORDERED: HYDROmorphone 0.5 MG/0.5 ML SYRINGE IVP PRN (11:33)
[2024-01-04] MEDS ORDERED: ePHEDrine 50 MG/ML VIAL IVP PRN (11:33)
[2024-01-04] MEDS ORDERED: ONDANSETRON 4 MG/2 ML VIAL ONE ×2 (11:33→12:40)
[2024-01-04] MEDS ORDERED: MORPHINE 2 MG/ML CARPUJECT IVP PRN (11:33)
[2024-01-04] MEDS ORDERED: iohexoL-240 10 ML VIAL IVP ONE (11:56)
[2024-01-04] MEDS: LIDOCAINE 2% URO-JET 5 ML SYRINGE UR ONE (11:57)
[2024-01-04] MEDS: iohexoL-240 10 ML VIAL IVP ONE (11:58)
[2024-01-04] MEDS ORDERED: LACTATED RINGERS 1,000 ML IV SCH (12:00)
[2024-01-04] MEDS ORDERED: HYDROcod/ACETAM 5/325 MG TABLET PO PRN (12:42)
[2024-01-04] MEDS ORDERED: ONDANSETRON 4 MG/2 ML VIAL IVP PRN (12:42)
[2024-01-04] MEDS: ONDANSETRON 4 MG/2 ML VIAL IVP PRN (12:42)
--- NOTE | 2024-01-04 12:50 | Discharge Plan ---
Discharge Plan Problem Reviewed?: Yes Disposition: Home, Self Care Prescriptions: Docusate Sodium 100Mg Capsule [Colace 100Mg Capsule] 100 mg PO DAILY #7 cap cephALEXin [Keflex] 500 mg PO ONCE #1 cap oxyCODONE [Roxicodone] 5 mg PO Q4H PRN #10 tablet PRN Reason: Pain Diet: Regular Activity Restrictions: No Restrictions Shower Restrictions: No Driving Restrictions: No Instruction Topics: Stents Ureteral Additional Instructions or Follow Up instructions: You have an appointment to remove your stent in the office on January 14 at 3:30 PM, please arrive 15mins early No Smoking: If you smoke, Please STOP! Call for help. Follow-up with: Boston Ch MD [Provider Admit Priv/Credential] -
--- NOTE | 2024-01-04 12:52 | OPERATIVE REPORT ---
Operative Report - General Procedure Date: 01/04/24 Planned Procedure: Cystoscopy, left ureteroscopy, laser lithotripsy, stent Pre-Op Diagnosis: left ureteral stone Procedure Performed: Cystoscopy, left ureteroscopy, laser lithotripsy, retrograde pyelogram, stent Post Op Diagnosis: left ureteral stone - Procedure Note Primary Surgeon: Dima Anesthesia Provider: PIA Valero Anesthesia Technique: General LMA Pathology: left ureteral stone Estimated Blood Loss (mL): 0 Findings: Left mid ureteral stone Complications: none - Other Other Information/Narrative: After informed consent was obtained the patient was brought to the OR and laid in the supine position. The patient was anesthetized per anesthesia protocols and prepped draped in usual sterile fashion in the dorsolithotomy position. A formal timeout was performed reconfirming the patient, procedure and laterality. A 22 [place] cystoscope was passed easily into urinary bladder. Bladder was inspected and full and there were no masses lesions or other concerns. A 5 [place] ureteral catheter was used to cannulate the left ureteral orifice and a gentle retrograde pyelograms performed which showed a filling defect at the expected location of the stone in the mid ureter. It did not appear radiopaque. A short semirigid ureteroscope was then advanced up into the stone which then was easily seen. There was edema and swelling around the stone at the mid ureter. Using a 200 m laser fiber at a energy of 1.0 and a rate of 8 the stone was dusted. A sensor wire was then placed up into the kidney. Using a basket we grasped a employment program representative stone sample to send for analysis. There were no further stones seen. We then placed a 6 [place]ian variable length ureteral stent with good curling of the kidney and good curling noted in the bladder under fluoroscopic and cystoscopic guidance. We emptied her bladder and placed a Uro- Jet. This concluded the procedure and the patient tolerated well. She will follow-up in 1 to 2 weeks time for stent removal. All counts are correct
[2024-01-04] MEDS: HYDROcod/ACETAM 5/325 MG TABLET ONE (13:24)
[2024-01-04 13:32] VITALS: BP 116/75; O2SAT 98
--- NOTE | 2024-01-04 15:55 | XRAY Report ---
PROCEDURE: OR C-Arm Procedure INDICATIONS: laser lithotripsy/ stent placement FLUORO TIME: 0.2 MIN TECHNIQUE: 5 intraoperative fluoroscopy images COMPARISON: CT abdomen and pelvis without, 12/17/2023. CT abdomen and pelvis with, 10/02/2023. FINDINGS: Intraoperative fluoroscopy images demonstrate cannulization and ejection of the left ureter . There is moderate left hydronephrosis. Placement of the left ureter stent is noted at the end. IMPRESSION: Fluoroscopy support for lithotripsy and ureteral stent placement. Please see surgeon's intraoperative report. Reviewed by: Bhavani Tierney MD on 01/04/2024 3:53 PM PDT Approved by: Bhavani Tierney MD on 01/04/2024 3:53 PM PDT Station ID: [id number]
--- NOTE | 2024-01-04 16:08 | ANESTHESIA POST OP EVALUATION ---
Anesthesia Post Eval - Post Anesthesia Eval Vitals: Last Vital Signs Temp 36.7 C 01/04/24 13:28 Pulse 77 01/04/24 13:28 Resp 16 01/04/24 13:28 BP 116/75 01/04/24 13:28 Pulse Ox 98 01/04/24 13:28 O2 Flow Rate CV Function Including HR & BP: Stable Pain Control: Satisfactory Nausea & Vomiting: Negative Mental Status: Baseline Respiratory Status: Airway Patent Hydration Status: Satisfactory Anesthesia Complications: None
== END 2024-01-04 09:43 | disposition home or self-care (01) ==
LOC: SDS 09:42
PROVIDERS: ATTEND Urology
PROC: 0T778DZ Dilation of Left Ureter with Intraluminal Device, Via Natural or Artificial Opening Endoscopic (ICD-10-PCS; 2024-01-04)
PROC: 0TC78ZZ Extirpation of Matter from Left Ureter, Via Natural or Artificial Opening Endoscopic (ICD-10-PCS; principal; 2024-01-04 11:00)
DX: N13.2 Hydronephrosis with renal and ureteral calculous obstruction (principal); E66.9 Obesity, unspecified; Z68.39 Body mass index [BMI] 39.0-39.9, adult
CPT/HCPCS: 52356; 81025; 82365; A9270; J7120; Q9966